=== PATIENT | female | born 1930 | race Caucasian/White ===

== ENCOUNTER → 2017-01-04 | Outpatient (CLI) | payer OTHER ==
[~2017-01-04] MED LIST: AMLO-110 PO; LISI40TA PO; METO50TA7 PO; MULT-506 PO; TAMO20TA9 PO
--- NOTE | 2017-01-04 13:04 | MAMMOGRAPHY REPORT ---
BILATERAL DIGITAL SCREENING MAMMOGRAM TOMOSYNTHESIS WITH CAD: 01/04/2017 CLINICAL HISTORY: Asymptomatic. Personal history of breast cancer. TECHNIQUE: Breast tomosynthesis in addition to standard 2D mammography was performed. Current study was also evaluated with a Computer Aided Detection (CAD) system. COMPARISON: Comparison is made to exams dated: 01/04/2016 mammogram, 01/01/2015 mammogram, 12/23/2013 m ammogram, 06/19/2013 mammogram, 12/04/2012 mammogram, and 12/04/2011 mammogram - [facility]. BREAST COMPOSITION: The tissue of both breasts is heterogeneously dense, which may obscure small ma sses. FINDINGS: No suspicious masses, calcifications, or areas of architectural distortion are noted in e ither breast. There has been no significant interval change compared to prior exams. There are stab le post surgical changes in the right upper outer quadrant from prior lumpectomy. Scattered bilater al benign-appearing calcifications are again noted. IMPRESSION: ACR BI-RADS CATEGORY 2: BENIGN There is no mammographic evidence of malignancy. A 1 year screening mammogram is recommended. The p atient will receive written notification of the results. Approximately 10% of breast cancers are not detected with mammography. A negative mammographic repor t should not delay biopsy if a clinically suggestive mass is present. Kandace Durán M.D. /:01/04/2017 12:38:23 Woodworker Helper: rAcelia ROTH)(M), [facility] letter sent: Normal 1/2 BI-RADS Code: ACR BI-RADS Category 2: Benign
== END | disposition home or self-care (01) ==
LOC: C.MAMM 09:44
PROVIDERS: ATTEND Internal Medicine
DX: Z12.31 Encounter for screening mammogram for malignant neoplasm of breast (principal); Z85.3 Personal history of malignant neoplasm of breast

== ENCOUNTER → 2017-01-08 | Outpatient (CLI) | payer OTHER ==
--- NOTE | 2017-01-08 13:57 | ECHOCARDIOGRAM REPORT ---
*NOTICE TO RECEIVING DEMOCRAT AGENCY This information is strictly Confidential and protected under [place] law. [place] law prohibits you from making any further disclosure of this information unless further disclosure is expressly permitted by the written consent of the person to whom it pertains or is authorized by law. A general authorization for the release of medical or other information is not sufficient for this purpose. Hospital accepts no responsibility if the information is made available to any other person, INCLUDING THE PATIENT. Interpretation Summary * Name: MADDY ARIAS Study Date: 01/08/2017 12:34 PM BP: 165/69 mmHg * Patient Location: [facility] HR: 71 * : 1930 (M/d/yyyy) Gender: Female Height: 65 in * Age: 86 yrs Ethnicity: [place] Weight: 135 lb * Ordering Physician: Rolando Knowles * Referring Physician: Rolando Knowles D.O. * Performed By: Hetal Gupta RDCS * * Reason For Study: MURMURS * BSA: 1.7 m2 * History: UNDIAGNOSED CARDIAC MURMURS * -- Conclusions -- * The left ventricle is normal in size. * Left ventricular systolic function is normal. * Ejection Fraction = 60-65%. * The right ventricular systolic function is normal. * The left atrial size is normal. * Right atrial size is normal. * Mild valvular aortic stenosis. * The mitral regurgitant jet is eccentrically directed. * There is moderate mitral regurgitation. Procedure Details * A complete two-dimensional transthoracic echocardiogram was performed (2D, M-mode, Doppler and color flow Doppler). Left Ventricle * The left ventricle is normal in size. * There is normal left ventricular wall thickness. * Ejection Fraction = 60-65%. * Left ventricular systolic function is normal. * The left ventricular wall motion is normal. Right Ventricle * The right ventricle is normal size. * The right ventricular systolic function is normal. Atria * The left atrial size is normal. * Right atrial size is normal. * The interatrial septum is intact with no evidence for an atrial septal defect. Mitral Valve * The mitral valve leaflets appear thickened, but open well. * The mitral regurgitant jet is eccentrically directed. * There is moderate mitral regurgitation. Tricuspid Valve * The tricuspid valve is not well visualized, but is grossly normal. * There is trace tricuspid regurgitation. Aortic Valve * The aortic valve is tricuspid. The leaflet thickness if normal. There is no aortic stenosis, and no significant insufficiency. * Mild valvular aortic stenosis. * Trace aortic regurgitation. Pulmonic Valve * The pulmonic valve is not well visualized. * There is no significant pulmonary regurgitation. Great Vessels * The aortic root and proximal ascending aorta are normal sized. Pericardium/Pleural * There is no pericardial effusion. MMode 2D Measurements and Calculations IVSd 1.1 cm IVSs 1.5 cm LVIDd 4.3 cm LVIDs 2.9 cm LVPWd 1.2 cm LVPWs 1.6 cm IVS/LVPW 0.93 FS 32.9 % EDV(Teich) 84.7 ml ESV(Teich) 32.5 ml EF(Teich) 61.6 % EDV(cubed) 81.5 ml ESV(cubed) 24.7 ml EF(cubed) 69.7 % % IVS thick 36.8 % % LVPW thick 33.4 % LV mass(C)d 170.0 grams LV mass(C)dI 101.6 grams/m\S\2 LV mass(C)s 154.8 grams LV mass(C)sI 92.5 grams/m\S\2 SV(Teich) 52.2 ml SI(Teich) 31.2 ml/m\S\2 SV(cubed) 56.9 ml SI(cubed) 34.0 ml/m\S\2 Ao root diam 3.2 cm Ao root area 7.8 cm\S\2 LA dimension 3.4 cm LA/Ao 1.1 LVOT diam 2.0 cm LVOT area 3.2 cm\S\2 LVAd ap4 22.7 cm\S\2 LVLd ap4 7.2 cm EDV(MOD-sp4) 60.5 ml LVAs ap4 12.3 cm\S\2 LVLs ap4 6.1 cm ESV(MOD-sp4) 23.3 ml EF(MOD-sp4) 61.5 % LVAd ap2 19.5 cm\S\2 LVLd ap2 6.4 cm EDV(MOD-sp2) 50.2 ml LVAs ap2 11.4 cm\S\2 LVLs ap2 5.5 cm ESV(MOD-sp2) 21.6 ml EF(MOD-sp2) 57.0 % SV(MOD-sp4) 37.2 ml SI(MOD-sp4) 22.2 ml/m\S\2 SV(MOD-sp2) 28.6 ml SI(MOD-sp2) 17.1 ml/m\S\2 Doppler Measurements and Calculations MV E max albin 55.3 cm/sec MV A max albin 76.2 cm/sec MV E/A 0.73 MV dec time 0.26 sec Ao V2 max 235.9 cm/sec Ao max PG 22.3 mmHg Ao max PG (full) 18.2 mmHg Ao V2 mean 161.3 cm/sec Ao mean PG 11.9 mmHg Ao mean PG (full) 9.6 mmHg Ao V2 VTI 50.6 cm RALEIGH(I,A) 1.4 cm\S\2 RALEIGH(I,D) 1.4 cm\S\2 R[place]IGH(V,A) 1.4 cm\S\2 R[place](V,D) 1.4 cm\S\2 AI max albin 417.1 cm/sec AI max PG 69.6 mmHg AI dec slope 247.7 cm/sec\S\2 AI P1/2t 493.1 msec LV V1 max PG 4.2 mmHg LV V1 mean PG 2.3 mmHg LV V1 max 101.9 cm/sec LV V1 mean 70.8 cm/sec LV V1 VTI 22.4 cm MR max albin 621.9 cm/sec MR max PG 154.7 mmHg SV(Ao) 395.8 ml SI(Ao) 236.5 ml/m\S\2 SV(LVOT) 70.8 ml SI(LVOT) 42.3 ml/m\S\2 TR max albin 222.2 cm/sec
== END ==
LOC: C.CPL 12:30
PROVIDERS: ATTEND Internal Medicine
DX: R01.1 Cardiac murmur, unspecified (principal)